=== PATIENT | male | born 2000 | race Caucasian/White ===

== ENCOUNTER 2021-03-31 07:46 | Emergency (ER) | payer OTHER ==
[~2021-03-31] VITALS: Ht 170.2 cm; Wt 59.0 kg
[2021-03-31 07:49] VITALS: BP 129/75
[2021-03-31] MEDS ORDERED: DOXYCYCLINE 10100 MG PO (08:48)
--- NOTE | 2021-03-31 18:51 | NUR ---
PT CALLED ABOUT POSITIVE STI RESULTS. INFORMED THE MEDICATIONS HE IS TAKING WILL COVER THE TREATMENT AND CONTINUE TAKING MEDS UNTIL FINISHED. ALSO INFORMED TO INFORM SEXUAL PARTNERS. PT STATES HE UNDERSTANDS
== END 2021-03-31 08:58 | disposition home or self-care (01) ==
LOC: ER 07:46
PROVIDERS: Emergency Medicine
DX: N47.7 Other inflammatory diseases of prepuce (principal)